=== PATIENT | female | born 2000 | race African-American/Black ===

== ENCOUNTER 2021-02-19 23:29 | Emergency (ER) | payer SELFPAY ==
[2021-02-19 23:35] VITALS: BP 115/68; PULSE 77; RESP 18; TEMP 37.4; O2SAT 100
--- NOTE | 2021-02-20 | ED.GENADULT ---
HPI - General Adult General Chief complaint: Unspecified Stated complaint: tonsile swelling Time Seen by Provider: 02/19/21 23:39 Source: patient Mode of arrival: ambulatory Limitations: no limitations History of Present Illness HPI narrative: 20-year-old with a history of problems here with complaints of sore throat for last 7 days. Patient states that she had taken [id number]-ibe-[id number] medication with no relief. She denies any fever or chills. Onset (ago): day(s) (7) Location: mouth Severity: mild Quality: aching Pain Consistency: constant Relieving factors: none Related Data Home Medications Medication Instructions Recorded Confirmed Nexplanon 02/19/21 Allergies Allergy/AdvReac Type Severity Reaction Status Date / Time lactase [From Dairy Aid] Allergy Diarrhea Verified 02/19/21 23:37 Review of Systems Review of Systems: All systems reviewed & are unremarkable except as noted in HPI and below Constitutional: Constitutional: Reports no additional constitutional complaints Eyes: Eyes: Reports no additional eye complaints ENT: Reports as per HPI Cardiovascular: Cardiovascular: Reports no additional cardiovascular complaints Respiratory: Respiratory: Reports no additional respiratory complaints Gastrointestinal: Gastrointestinal: Reports no additional gastrointestinal complaints Musculoskeletal: Musculoskeletal: Reports no additional musculoskeletal complaints Integumentary/Breasts: Skin/Breast: Reports system reviewed and no additional complaints, except as docu PMFSH Social History Social History Gender identity (if verbalized by the patient): Female Exam Narrative: Exam Narrative: GENERAL: Well-appearing, well-nourished, and in no acute distress. HEAD: Normocephalic, atraumatic. EYES: PERRLA and EOMI. ENT: . Mucous membranes moist. Tonsils are enlarged with mild erythema but no exudates. NECK: Supple. CHEST: Clear to auscultation. No respiratory distress. HEART: Regular rate and rhythm. No murmur heard. Normal peripheral pulses. ABDOMEN: Soft, nontender, nondistended, normal active bowel sounds. EXTREMITIES: Normal range of motion. No edema. SKIN: Warm, dry, no rash. NEURO: No focal deficits. Alert and oriented x3. PSYCH: Normal mood and affect. Course Course Emergency Course: Inform patient about her lab work. Advised to take antibiotic as prescribed. Take Tylenol for fever. Vital Signs Vital signs: Vital Signs Temperature 37.4 C 05/06/21 23:35 Pulse Rate 77 02/19/21 23:35 Respiratory Rate 18 02/19/21 23:35 Blood Pressure 115/68 02/19/21 23:35 Pulse Oximetry 100 02/19/21 23:35 Temperature 37.4 C 02/19/21 23:35 Pulse Rate 77 02/19/21 23:35 Respiratory Rate 18 02/19/21 23:35 Blood Pressure 115/68 02/19/21 23:35 Pulse Oximetry 100 02/19/21 23:35 Medical Decision Making Vital Signs Vital Signs: Vital Signs Temperature 37.4 C 02/19/21 23:35 Pulse Rate 77 02/19/21 23:35 Respiratory Rate 18 02/19/21 23:35 Blood Pressure 115/68 02/19/21 23:35 Pulse Oximetry 100 02/19/21 23:35 Temperature 37.4 C 02/19/21 23:35 Pulse Rate 77 02/19/21 23:35 Respiratory Rate 18 02/19/21 23:35 Blood Pressure 115/68 02/19/21 23:35 Pulse Oximetry 100 02/19/21 23:35 Lab Data Labs: Strep Screen Presumptive Negative *(Reference Range: Negative)* Discharge Plan Discharge Clinical Impression: Acute streptococcal pharyngitis, Streptococcal tonsillitis Patient Disposition: Home, Self-Care Condition: Stable Instructions: Antibiotic Form, Strep Throat (DC) Prescriptions: New amoxicillin 875 mg tablet 875 mg PO Q12H Qty: 20 RF: 0 No Action Nexplanon RF: 0 Follow-up/Referrals: PHYSICIAN NOT ON STAFF,NONSTAFF [Primary Care Provider] - Weston Fuentes MD [Physician] - Time of D
== END 2021-02-20 00:30 | disposition home or self-care (01) ==
LOC: ANHED 02-20 00:26
PROVIDERS: Emergency Provider Family Medicine
DX: J03.00 Acute streptococcal tonsillitis, unspecified (principal)
CPT/HCPCS: 87081; 87880; 99283